=== PATIENT | female | born 1950 | race Caucasian/White ===

== ENCOUNTER 2016-11-29 17:09 | Emergency (ER) | payer MEDICARE ==
--- NOTE | 2016-11-29 19:16 | RAD ---
INDICATION: Pain posterior right knee and calf. COMPARISON: There are no prior studies available for comparison. TECHNIQUE: Multiple real-time, color flow and Doppler tracings of the right lower extremity were obtained. FINDINGS: The common femoral, femoral, profunda femoral and popliteal veins all demonstrate normal compressibility, augmentation with compression and phasic response with respiration. The posterior tibial and peroneal veins demonstrate normal compressibility and augmentation with compression. No popliteal cyst is seen. IMPRESSION: NO EVIDENCE FOR DEEP VENOUS THROMBOSIS.
[2016-11-29 19:56] VITALS: BP 152/79
--- NOTE | 2016-11-29 20:02 | ED ---
Lower Extremity - HPI Summary HPI Summary: Patient presents to ED with 2 days worsening right knee pain which is located posterolateral just superior to the knee and radiates to inferior to the knee joint with no acute injury or known trauma. While for 2 days she has been in pain, she states upon attempting to get out of her car, she was unable to bear weight d/t 10/10 pain. She has been trying to take tylenol for the pain with minimal relief. She is currently using crutches stating she cannot bear weight. Upon movement of the patella, she has not pain. She is able to move about the knee without pain and is only c/o while ambulating. She denies any previous injury to the knee. She denies any recent travel, smoking history or known malignancy. No pain in the hip or the ankle and denies pain in the calf. She is otherwise healthy. PSHx includes bariatric surgery and is not able to take NSAIDS. She denies any allergies. - History of Current Complaint Hx Obtained From: Patient Mechanism Of Injury: Unknown Onset of Pain: Days Onset/Duration: Days Severity Initially: Moderate Severity Currently: Moderate Pain Intensity: 7 Pain Scale Used: 0-10 Numeric Timing: Constant Location: Is Discrete @ - right knee Associated Signs And Symptoms: Positive: Negative Aggravating Factor(s): Standing, Ambulation Alleviating Factor(s): Rest Able to Bear Weight: No - Risk Factors Gout Risk Factors: Age Over 40 DVT Risk Factors: Negative Septic Arthritis Risk Factor: Negative <Jessica Gordon - Last Filed: 11/29/16 19:57> <Delisa Allison - Last Filed: 12/01/16 07:50> - History of Current Complaint Chief Complaint: EDExtremityLower Stated Complaint: RT KNEE PAIN/TOES TINGLING Time Seen by Provider: 11/29/16 18:21 - Allergies/Home Medications Allergies/Adverse Reactions: Allergies Allergy/AdvReac Type Severity Reaction Status Date / Time No Known Allergies Allergy Verified 05/04/16 13:30 PMH/Surg Hx/FS Hx/Imm Hx Previously Healthy: Yes Endocrine/Hematology History: Reports: Hx Diabetes Denies: Hx Anticoagulant Therapy, Hx Systemic Lupus Erythematosus, Hx Thyroid Disease Cardiovascular History: Reports: Hx Hypertension - not currently on meds Denies: Hx Congestive Heart Failure, Hx Pacemaker/ICD, Other Cardiovascular Problems/Disorders - DENIES Respiratory History: Denies: Hx Asthma, Hx Chronic Obstructive Pulmonary Disease (COPD), Other Respiratory Problems/Disorders - DENIES GI History: Denies: Hx Ulcer, Other GI Disorders - DENIES History: Denies: Hx Dialysis, Hx Renal Disease, Other Problems/Disorders - DENIES Musculoskeletal History: Denies: Hx Rheumatoid Arthritis Sensory History: Denies: Hx Hearing Aid Neurological History: Denies: Hx Dementia, Hx Seizures Psychiatric History: Denies: Hx Panic Disorder, Hx Substance Abuse - Cancer History Hx Chemotherapy: No Hx Radiation Therapy: No - Surgical History Surgery Procedure, Year, and Place: gastric bypass SX and Cholecysectomy in 2013 at [place]. - Immunization History Hx Pertussis Vaccination: No Immunizations Up to Date: Unable to Obtain/Confirm Infectious Disease History: No Infectious Disease History: Denies: Hx Clostridium Difficile, Hx Hepatitis, Hx Human Immunodeficiency Virus (HIV), Hx of Known/Suspected MRSA, Hx Shingles, Hx Tuberculosis, Hx Known/ Suspected VRE, Hx Known/Suspected VRSA, History Other Infectious Disease, Traveled Outside the [place] in Last 30 Days - Family History Known Family History: Positive: None Family History: patient denies PMHx - Social History Occupation: Employed Full-time Lives: With Family Alcohol Use: None Hx Substance Use: No Substance Use Type: Reports: None Hx Tobacco Use: No Smoking Status (MU): Never Smoked Tobacco <Jessica Gordon - Last Filed: 11/29/16 19:57> Review of Systems Constitutional: Negative Eyes: Negative Cardiovascular: Negative Respiratory: Negative Positive: no symptoms reported, see HPI Positive: Arthralgia, Myalgia Skin: Negative Neurological: Negative Psychological: Normal All Other Systems Reviewed And Are Negative: Yes <Jessica Gordon - Last Filed: 11/29/16 19:57> Physical Exam Triage Information Reviewed: Yes Vital Signs On Initial Exam: Initial Vitals Temp Pulse Resp BP Pulse Ox 97.1 F 104 20 149/71 97 11/29/16 17:13 11/29/16 17:13 11/29/16 17:13 11/29/16 17:13 11/29/16 17:13 Vital Signs Reviewed: Yes Appearance: Positive: Well-Appearing, Well-Nourished Skin: Positive: Warm, Skin Color Reflects Adequate Perfusion Head/Face: Positive: Normal Head/Face Inspection Eyes: Positive: EOMI, ELENA, Conjunctiva Clear Neck: Positive: Supple, No Lymphadenopathy Respiratory/Lung Sounds: Positive: Clear to Auscultation, Breath Sounds Present Cardiovascular: Positive: Normal, RRR Musculoskeletal: Positive: Pain @ - right knee pain, Other - ROM intact Neurological: Positive: Sensory/Motor Intact, Alert, Oriented to Person Place, Time, Speech Normal Psychiatric: Positive: Normal AVPU Assessment: Alert - [place] Coma Scale Coma Scale Total: 15 <Jessica Gordon - Last Filed: 11/29/16 19:57> Vital Signs On Initial Exam: Initial Vitals Temp Pulse Resp BP Pulse Ox 97.1 F 104 20 149/71 97 11/29/16 17:13 11/29/16 17:13 11/29/16 17:13 11/29/16 17:13 11/29/16 17:13 <Delisa Allison - Last Filed: 12/01/16 07:50> Diagnostics - Vital Signs Vital Signs Temp Pulse Resp BP Pulse Ox 11/29/16 19:53 98.4 F 60 16 152/79 11/29/16 18:36 97 F 92 20 144/76 99 11/29/16 17:13 97.1 F 104 20 149/71 97 <Jessica Gordon - Last Filed: 11/29/16 19:57> - Vital Signs Vital Signs Temp Pulse Resp BP Pulse Ox 11/29/16 19:53 98.4 F 60 16 152/79 11/29/16 18:36 97 F 92 20 144/76 99 11/29/16 17:13 97.1 F 104 20 149/71 97 <Delisa Allison - Last Filed: 12/01/16 07:50> Lower Extremity Course/Dx - Course Course Of Treatment: US to r/o popliteal cyst and DVT. Pain is located lateral over the hamstring radiating to the right knee and inferior to the right knee without calf involvement. The pattern is muscular/nerve and is likely d/t overuse while working on her feet extra hours this week. She works outside in yard [employer]. She has never had this before. She is unable to take ibuprofen for pain. Treatment options explained and provider and patient agree to start conservatively with moist heat, rest, tylenol and low dose muscle relaxers only as needed for any discomfort. Continue with tylenol for pain. Follow up with Dr. Falcon. Will defer at this time for an xray as there is no injury and there is no pain with movement, lachmans, anterior drawer or mcmurrry 's negative. - Diagnoses Differential Diagnosis/HQI/PQRI: Positive: Fracture (Closed), Fracture (Open), Sprain, Strain, Tendonitis <Jessica Gordon - Last Filed: 11/29/16 19:57> <Delisa Allison - Last Filed: 12/01/16 07:50> - Diagnoses Provider Diagnoses: Tendonitis Discharge <Jessica Gordon - Last Filed: 11/29/16 19:57> <Delisa Allison - Last Filed: 12/01/16 07:50> - Discharge Plan Condition: Stable Disposition: HOME Prescriptions: Cyclobenzaprine TAB* [Flexeril TAB*] 10 mg PO BID PRN #12 tab MDD 2 PRN Reason: Pain Patient Education Materials: Musculoskeletal Pain (ED) Forms: *Work Release Referrals: Camila Padilla MD [Primary Care Provider] - Evan Falcon MD [Medical Doctor] - Additional Instructions: Flexeril up to twice daily as needed for muscle pain Moist heat to the area several times per day Rest the area Only bear weight as tolerated. Tylenol 650mg three times daily for any discomfort Attestation Statement User Type: Provider - I was available for consult. This patient was seen by the VAN. The patient was not presented to, seen by, or examined by me. -Dell <Delisa Allison - Last Filed: 12/01/16 07:50>
== END 2016-11-29 19:53 | disposition home or self-care (01) ==
LOC: ED 17:09
DX: M77.9 Enthesopathy, unspecified (principal)
CPT/HCPCS: 99281

== ENCOUNTER 2016-12-26 17:13 | Emergency (ER) | payer MEDICARE ==
--- NOTE | 2016-12-26 19:12 | RAD ---
INDICATION: Pain and decreased range of motion at the RIGHT wrist post fall. COMPARISON: None. TECHNIQUE: AP, lateral, and oblique views RIGHT wrist. REPORT: Bone density appears decreased throughout. No cortical disruption or suspicious trabecular irregularity to suggest fracture. Degenerative cyst at the lunate. Volar soft tissue swelling. IMPRESSION: Negative for fracture or malalignment. Volar soft tissue swelling.
--- NOTE | 2016-12-26 19:14 | RAD ---
Indication: Pain post fall onto the RIGHT patella. Pain on extension. Comparison: December 02, 2016 Technique: RIGHT knee: AP, tunnel, sunrise, crosstable lateral views. Report: Comminuted fracture at the patella with dominant transverse and sagittal components with only minimal displacement primarily cephalocaudal distraction. Probable osteochondral impaction at the articular surface. Moderate complex suprapatellar joint effusion consistent with lipohemarthrosis. No additional fracture evident. Normal articular alignment. Negative for significant joint space narrowing. IMPRESSION: Comminuted only minimally displaced intra-articular fracture at the patella with associated lipohemarthrosis.
[2016-12-26] MEDS ORDERED: Ondansetron ODT TAB* 4 MG PO ONE (19:27)
[2016-12-26] MEDS ORDERED: HYDROcodone/ACETAMIN 5-325 MG* 1 TAB PO ONE ×2 (19:27→21:06)
[2016-12-26] MEDS ORDERED: Ondansetron TAB* 4 MG PO ONE (21:06)
--- NOTE | 2016-12-26 21:11 | ED ---
Adult Trauma - HPI Summary HPI Summary: 66 female presents to ED with complaints of right knee pain and right wrist pain after tripping and sustaining a mechanical fall this morning around 8: 45am. Patient states she was able to bear weight using a person as a crutch however it did cause significant pain. Took one advil this morning for pain however did not help all that much. Unable to move wrist or knee without significant pain. Rest makes pain feel better. Admits to some swelling of both injuries, no bruising or significant deformities. Denies numbness/tingling. No other complaints at this time. Did not hit head. PMHx significant for right knee previous injury, gastric bypass and HTN. - History of Current Complaint Chief Complaint: EDExtremityLower Stated Complaint: FALL RIGHT KNEE PAIN, RIGHT HAND INJURY Time Seen by Provider: 12/26/16 19:21 Hx Obtained From: Patient Mechanism of Injury: Fall Loss of Consciousness: no loss of consciousness Onset/Duration: Started Hours Ago, Traumatic, Still Present, Worse Since Onset of Pain: Immediate, Post Accident Onset Severity: Moderate Current Severity: Moderate Pain Intensity: 9 Pain Scale Used: 0-10 Numeric Location: Extremities - right knee, right wrist Character: Aching, Sharp Aggravating Factor(s): Movement Alleviating Factor(s): Rest Associated Signs & Symptoms: Negative: Nausea/Vomiting, Loss of Consciousness Related History: Other: - right hand dominant - Allergy/Home Medications Allergies/Adverse Reactions: Allergies Allergy/AdvReac Type Severity Reaction Status Date / Time No Known Allergies Allergy Verified 05/04/16 13:30 PMH/Surg Hx/FS Hx/Imm Hx Endocrine/Hematology History: Reports: Hx Diabetes Denies: Hx Anticoagulant Therapy, Hx Systemic Lupus Erythematosus, Hx Thyroid Disease Cardiovascular History: Reports: Hx Hypertension - not currently on meds Denies: Hx Congestive Heart Failure, Hx Pacemaker/ICD, Other Cardiovascular Problems/Disorders - DENIES Respiratory History: Denies: Hx Asthma, Hx Chronic Obstructive Pulmonary Disease (COPD), Other Respiratory Problems/Disorders - DENIES GI History: Denies: Hx Ulcer, Other GI Disorders - DENIES History: Denies: Hx Dialysis, Hx Renal Disease, Other Problems/Disorders - DENIES Musculoskeletal History: Denies: Hx Rheumatoid Arthritis Sensory History: Denies: Hx Hearing Aid Neurological History: Denies: Hx Dementia, Hx Seizures Psychiatric History: Denies: Hx Panic Disorder, Hx Substance Abuse - Cancer History Hx Chemotherapy: No Hx Radiation Therapy: No - Surgical History Surgery Procedure, Year, and Place: gastric bypass SX and Cholecysectomy in 2013 at [place]. - Immunization History Immunizations Up to Date: Yes Infectious Disease History: No Infectious Disease History: Denies: Hx Clostridium Difficile, Hx Hepatitis, Hx Human Immunodeficiency Virus (HIV), Hx of Known/Suspected MRSA, Hx Shingles, Hx Tuberculosis, Hx Known/ Suspected VRE, Hx Known/Suspected VRSA, History Other Infectious Disease, Traveled Outside the [place] in Last 30 Days - Family History Known Family History: Positive: None Family History: patient denies PMHx - Social History Alcohol Use: None Hx Substance Use: No Substance Use Type: Reports: None Hx Tobacco Use: No Smoking Status (MU): Never Smoked Tobacco Review of Systems Constitutional: Negative Cardiovascular: Negative Respiratory: Negative Positive: Arthralgia, Myalgia, Decreased ROM, Edema - right wrist and right knee Skin: Negative Neurological: Negative All Other Systems Reviewed And Are Negative: Yes Physical Exam Triage Information Reviewed: Yes Vital Signs On Initial Exam: Initial Vitals Temp Pulse Resp BP Pulse Ox 98.0 F 82 18 166/79 99 12/26/16 17:24 12/26/16 17:24 12/26/16 17:24 12/26/16 17:24 12/26/16 17:24 BP improved, in pain 154/80 Vital Signs Reviewed: Yes Appearance: Positive: Well-Appearing, Well-Nourished, Pain Distress - mild to moderate with movement Skin: Positive: Warm, Skin Color Reflects Adequate Perfusion, Dry, Other - no significant ecchymosis or signs of trauma noted. no obvious deformity or abrasions noted. Negative: Cold, Numb, Cyanosis @, Pale, Erythema @ Head/Face: Positive: Normal Head/Face Inspection Eyes: Positive: Conjunctiva Clear ENT: Positive: Hearing grossly normal, Pharynx normal Neck: Positive: Supple, Nontender Respiratory/Lung Sounds: Positive: Clear to Auscultation, Breath Sounds Present. Negative: Rales, Rhonchi, Wheezes Cardiovascular: Positive: Normal, RRR, Pulses are Symmetrical in both Upper and Lower Extremities - 2+ radial and pedal b/l. Negative: Murmur, Rub Musculoskeletal: Positive: Limited @ - right wrist and right knee with any ROM including passive., Pain @ - diffuse right wrist and right anterior knee over patella area, Edema Right - minimal at right wrist and right anterior knee, Other - rest of MSK exam normal. No appreciated crepitus, step off or obvious deformity. no ecchymosis. no pain in lower LE tibia/fibula and no pain on palpation of right forearm, elbow.. Negative: Interruption @ Neurological: Positive: Normal, Sensory/Motor Intact - sensation intact CMS normal, Alert, Oriented to Person Place, Time, Reflexes Intact - not assessed at right patella, NV Bundle Intact Distally, Unable to Assess Gait - due to pain /injury Psychiatric: Positive: Affect/Mood Appropriate - [place] Coma Scale Best Eye Response: 4 - Spontaneous Best Motor Response: 6 - Obeys Commands Best Verbal Response: 5 - Oriented Diagnostics - Vital Signs Vital Signs Temp Pulse Resp BP Pulse Ox 12/26/16 18:47 99 F 65 16 154/80 99 12/26/16 17:24 98.0 F 82 18 166/79 99 - Laboratory Lab Statement: Any lab studies that have been ordered have been reviewed, and results considered in the medical decision making process. - Radiology knee R Xray Interpretation: Positive (See Comments) - Comminuted only minimally displaced intra-articular fracture at the patella with associated lipohemarthrosis. Radiology Interpretation Completed By: Radiologist wrist Xray Interpretation: No Acute Changes - Negative for fracture or malalignment. Volar soft tissue swelling. Radiology Interpretation Completed By: Radiologist Adult Trauma Course/Dx - Course Course Of Treatment: given pain management and anti nausea medicaton due to the pain medication causing nausea in the past. prophylactic. x-rays obtained and negative for fracture of wrist however positive for fracture of right patella. given thumb spica splint for wrist sprain, knee immobilizer for right patella fracture. crutches, ice. continue pain management at home, RICE and NSAIDs. Spoke with Dr Medrano at 7:30pm who stated immobilzer, and follow up for right knee as it appears to need surgery. Follow up with Ortho Tuesday. Aware of worsening signs and symptoms and return if occur. Follow up PCP as well. - Diagnoses Differential Diagnosis/HQI/PQRI: Positive: Contusion(s), Fracture, Dislocation, Sprain, Strain Provider Diagnoses: Right wrist sprain, Right patella fracture - Physician Notifications Discussed Care Of Patient With: Dr Medrano Time Discussed With Above Provider: 19:30 Instructed by Provider To: Have Pt Call For Appt. Discharge - Discharge Plan Condition: Stable Disposition: HOME Prescriptions: HYDROcodone/ACETAMIN 5-325 MG* [[place] 5-325 TAB*] 1 tab PO Q4H PRN #20 tab MDD 4 PRN Reason: Pain Ondansetron ODT TAB* [Zofran 4 MG Odt TAB*] 4 mg PO Q6H PRN #20 tab.odt PRN Reason: Nausea Patient Education Materials: Wrist Sprain (ED), Patellar Fracture (ED) Referrals: Camila Padilla MD [Primary Care Provider] - Cliff Medrano MD [Medical Doctor] - Additional Instructions: Take prescribed medication as directed for pain and nausea, as needed. Rest, ice and elevate both wrist and knee. Wear braces on both. Do not bear weight on right leg. Use crutches as able. Call and make an appointment with Ortho for further evaluation and treatment. If new symptoms develop or symptoms worsen please seek medical attention promptly.
[2016-12-26 22:06] VITALS: BP 144/81
== END 2016-12-26 22:06 | disposition home or self-care (01) ==
LOC: ED 17:13
DX: S82.001A Unspecified fracture of right patella, initial encounter for closed fracture (principal); S63.501A Unspecified sprain of right wrist, initial encounter; W18.09XA Striking against other object with subsequent fall, initial encounter; Y92.9 Unspecified place or not applicable; I10 Essential (primary) hypertension; E11.9 Type 2 diabetes mellitus without complications
CPT/HCPCS: 99282; A9270-GY

== ENCOUNTER 2020-12-06 21:18 | Observation (INO) ==
[2020-12-06 21:44] LABS: ABS Basophils 0.1 10^3/ul (0-0.2); ABS Eosinophils 0.3 10^3/ul (0-0.6); ABS Lymphocytes 2.4 10^3/ul (1.0-4.8); ABS Monocytes 0.7 10^3/ul (0-0.8); ABS Neutrophils 3.9 10^3/ul (1.5-7.7); Eosinophil % 3.6 %; Hematocrit 41 % (35-47); Lymphocyte % 33.1 %; Mean Corpuscular HGB Conc 34 g/dL (31-36); Mean Corpuscular Hemoglobin 33 pg (27-31); Mean Corpuscular Volume 96 fL (80-97); Mean Platelet Volume 8.6 fL (7.4-10.4); Platelet Count 239 10^3/uL (150-450); Red Blood Count 4.27 10^6 /uL (3.70-4.87); Red Cell Distribution Width 13 % (10-15); White Blood Count 7.3 10^3/uL (3.5-10.8)
[2020-12-06 21:50] LABS: INR 0.96 (0.86-1.15)
[2020-12-06 22:01] LABS: Albumin 4.2 g/dL (3.2-5.2); Albumin/Globulin Ratio 1.6 (1-3); Calcium 9.1 mg/dL (8.6-10.3); EGFR African American 98.8 (>60); EGFR Non-African American 81.6 (>60); Globulin 2.7 g/dL (2-4); Potassium 3.7 mmol/L (3.5-5.0); Total Bilirubin 0.4 mg/dL (0.2-1.0); Total Protein 6.9 g/dL (6.4-8.9)
[2020-12-07] MEDS ORDERED: Nitro 2% OINT (Nitroglycerin) 1 INCH/PAK TOPICAL ONE (02:12)
[2020-12-07] MEDS ORDERED: Ondansetron 4 mg VIAL 2 MG/ML 2 ml VIAL IV PRN (04:33)
[2020-12-07 05:02] LABS: HDL Cholesterol 59.6 mg/dL
[2020-12-07] MEDS: Multivitamins/Minerals TAB PO SCH (08:51)
[2020-12-07] MEDS: Cholecalciferol (VIT D3) 1,000 unit TAB PO SCH (08:51)
[2020-12-07] MEDS: Calcium Citrate 200 mg TAB PO SCH ×3 (08:52→20:32)
[2020-12-07] MEDS: ASCORBIC ACID PO SCH ×2 (08:53→20:33)
[2020-12-07] MEDS: COENZYME Q10 400 MG PO SCH (08:53)
[2020-12-07] MEDS: FOLIC ACID PO SCH ×2 (08:53→20:33)
[2020-12-07] MEDS: INTRINSIC FACTOR PO SCH ×2 (08:53→20:33)
[2020-12-07] MEDS: [UNRECOGNIZED DRUG - OTHER] PO SCH ×2 (08:53→20:33)
[2020-12-07] MEDS: CYANOCOBALAMIN PO SCH ×2 (08:53→20:33)
[2020-12-07] MEDS: Enoxaparin 40 MG/0.4 ML SYR SUBCUT SCH (08:59)
[2020-12-07] MEDS ORDERED: Nitro Patch/OINT Remove PATCH PATCH OFF ONE (18:00)
[2020-12-08] MEDS: Enoxaparin 40 MG/0.4 ML SYR SUBCUT SCH (08:26)
[2020-12-08] MEDS: Multivitamins/Minerals TAB PO SCH (08:28)
[2020-12-08] MEDS: Calcium Citrate 200 mg TAB PO SCH ×2 (08:28→14:16)
[2020-12-08] MEDS: Cholecalciferol (VIT D3) 1,000 unit TAB PO SCH (08:29)
[2020-12-08] MEDS: FOLIC ACID PO SCH (08:36)
[2020-12-08] MEDS: CYANOCOBALAMIN PO SCH (08:36)
[2020-12-08] MEDS: ASCORBIC ACID PO SCH (08:36)
[2020-12-08] MEDS: COENZYME Q10 400 MG PO SCH (08:36)
[2020-12-08] MEDS: INTRINSIC FACTOR PO SCH (08:36)
[2020-12-08] MEDS: [UNRECOGNIZED DRUG - OTHER] PO SCH (08:36)
[2020-12-08] MEDS ORDERED: Regadenoson 0.4 MG/5 ML SYRINGE ONE (08:50)
[2020-12-08 11:48] LABS: ABS Basophils 0.1 10^3/ul (0-0.2); ABS Eosinophils 0.3 10^3/ul (0-0.6); ABS Monocytes 0.6 10^3/ul (0-0.8); ABS Neutrophils 4.7 10^3/ul (1.5-7.7); Eosinophil % 3.5 %; Hematocrit 44 % (35-47); Hemoglobin 15.1 g/dL (12.0-16.0); Lymphocyte % 26.4 %; Mean Corpuscular HGB Conc 34 g/dL (31-36); Mean Corpuscular Hemoglobin 33 pg (27-31); Mean Corpuscular Volume 96 fL (80-97); Mean Platelet Volume 8.8 fL (7.4-10.4); Platelet Count 258 10^3/uL (150-450); Red Blood Count 4.56 10^6 /uL (3.70-4.87); Red Cell Distribution Width 13 % (10-15); White Blood Count 7.7 10^3/uL (3.5-10.8)
[2020-12-08 11:57] LABS: Calcium 9.6 mg/dL (8.6-10.3); EGFR African American 113.4 (>60); EGFR Non-African American 93.7 (>60); Potassium 4.1 mmol/L (3.5-5.0)
[2020-12-08 16:18] VITALS: BP 137/73
== END 2020-12-08 18:00 | disposition home or self-care (01) ==
LOC: MEDTELE 21:18 → ED 21:18 → SUATTDRO 12-07 06:14 → MEDTELE 12-07 06:39
PROVIDERS: ADMIT Hospitalist; ATTEND Internal Medicine

== ENCOUNTER 2024-01-29 12:05 | Inpatient (IN) ==
[2024-01-29] MEDS: Ondansetron 4 mg VIAL 2 MG/ML 2 ml VIAL IV ONE (13:02)
[2024-01-29] MEDS: Lactated Ringers 1000 ml BAG 1,000 ML IV ONE ×2 (13:02→16:38)
[2024-01-29 13:09] LABS: Hematocrit 41.5 % (35-45); Hemoglobin 14.1 g/dL (11.5-14.3); Mean Corpuscular Hemoglobin 32.3 pg (27-33); Mean Corpuscular Volume 94.9 fL (80-97); Red Blood Count 4.37 10^6/uL (3.63-4.92); Red Cell Distribution Width 13.2 % (12-17); White Blood Count 3.4 10^3/uL (3.8-11.8)
[2024-01-29 13:13] LABS: INR 1.03 (0.85-1.14)
[2024-01-29 13:28] LABS: ABS Lymphocytes 0.2 10^3/uL (1.0-4.8); ABS Monocytes 0.3 10^3/uL (0.0-0.9); Eosinophil % 0.1 %; Lymphocyte % 4.4 %; Mean Platelet Volume 8.7 fL (7.5-11.2); Nucleated Red Blood Cells % 0.1 %/100WBC (0.0-0.8); Platelet Count 99 10^3/uL (150-450)
[2024-01-29 13:55] LABS: Albumin 4.1 g/dL (3.2-5.2); Albumin/Globulin Ratio 1.9 (1-3); Creatinine, Serum 0.62 mg/dL (0.51-0.95); Globulin 2.2 g/dL (2-4); Potassium 4.2 mmol/L (3.5-5.0); Total Bilirubin 0.7 mg/dL (0.2-1.0); Total Protein 6.3 g/dL (6.4-8.9)
[2024-01-29 14:45] LABS: High Sensitivity Troponin 1 Hr 9 pg/mL (<15)
[2024-01-29] MEDS: Iodixanol 320 (CONTRAST) 100 ML SDV IV ONE (15:13)
[2024-01-29 16:10] LABS: Magnesium 1.7 mg/dL (1.9-2.7)
[2024-01-29 16:39] LABS: Urine Appearance Turbid; Urine Bacteria Absent /HPF (Absent); Urine Bilirubin Negative (Negative); Urine Blood Trace (Negative); Urine Color Yellow; Urine Glucose Negative (Negative); Urine Ketones 1+ (Negative); Urine Nitrite Negative (Negative); Urine Protein 2+ (>=100 mg/dL) (Negative); Urine Red Blood Cell 1+(3-5/hpf) /HPF (0-Trace); Urine Specific Gravity >1.050 (1.002-1.030); Urine Squamous Epithelial Cell Present /HPF (Absent); Urine Urobilinogen 2+ (Negative); Urine White Blood Cell Trace(0-5/hpf) /HPF (0-Trace)
[2024-01-29] MEDS: Cefepime 2 GM in Dextrose 2 GM/50 ML BAG IV ONE (18:55)
[2024-01-29] MEDS: Vancomycin 1,250 MG in NS 0.9% 250 ml 250 ML IVPB ONE (19:52)
[2024-01-29] MEDS ORDERED: Dextrose 50% Syringe 50 ml 25 GM/50 ML SYRINGE IV PUSH PRN (20:03)
[2024-01-29] MEDS: Enoxaparin 40 MG/0.4 ML SYR SUBCUT SCH (20:49)
[2024-01-29] MEDS ORDERED: Ondansetron 4 mg VIAL 2 MG/ML 2 ml VIAL IV PRN (21:14)
[2024-01-29 22:07] LABS: Osmolality Serum 276 mOsm/kg (275-295)
[2024-01-29] MEDS ORDERED: Sulfur Hexaflouride MICROSPHR 25 MG VIAL IV PRN (22:19)
[2024-01-29] MEDS: DOXYcycline 100 MG in NS 0.9% 250 ml 250 ML IVPB SCH (22:38)
[2024-01-30 00:15] LABS: Urine Osmo 475 mOsm/kg (150-1150)
[2024-01-30 06:46] LABS: ABS Lymphocytes 0.2 10^3/uL (1.0-4.8); ABS Monocytes 0.2 10^3/uL (0.0-0.9); ABS Neutrophils 1.4 10^3/uL (1.5-7.6); ABS Nucleated RBC 0.01 10^3/ul; Eosinophil % 0.3 %; Hematocrit 37.5 % (35-45); Hemoglobin 12.7 g/dL (11.5-14.3); Lymphocyte % 9.9 %; Mean Corpuscular Hemoglobin 32.1 pg (27-33); Mean Corpuscular Hgb Conc 33.8 g/dL (31-36); Mean Corpuscular Volume 94.8 fL (80-97); Mean Platelet Volume 9.9 fL (7.5-11.2); Nucleated Red Blood Cells % 0.3 %/100WBC (0.0-0.8); Platelet Count 72 10^3/uL (150-450); Red Blood Count 3.96 10^6/uL (3.63-4.92); Red Cell Distribution Width 13.2 % (12-17); White Blood Count 1.8 10^3/uL (3.8-11.8)
[2024-01-30 07:06] LABS: Anion Gap 6 mmol/L (2-16); Blood Urea Nitrogen 13 mg/dL (6-24); CO2 Carbon Dioxide 25 mmol/L (22-32); Calcium 7.6 mg/dL (8.6-10.3); Chloride 101 mmol/L (101-111); Creatinine, Serum 0.45 mg/dL (0.51-0.95); Glucose 107 mg/dL (70-100); Sodium 132 mmol/L (135-145); eGFR CKD-EPI 101.5 (>60)
[2024-01-30] MEDS: Calcium Citrate 200 mg TAB PO SCH (08:35)
[2024-01-30] MEDS: Cholecalciferol (VIT D3) 1,000 unit TAB PO SCH (08:36)
[2024-01-30 08:51] LABS: Magnesium 1.7 mg/dL (1.9-2.7)
[2024-01-30] MEDS: DOXYcycline 100 MG in NS 0.9% 250 ml 250 ML IVPB SCH (23:06)
[2024-01-31 06:25] LABS: Calcium 8.1 mg/dL (8.6-10.3); Creatinine, Serum 0.66 mg/dL (0.51-0.95); Magnesium 1.7 mg/dL (1.9-2.7); Potassium 3.5 mmol/L (3.5-5.0); eGFR CKD-EPI 92.6 (>60)
[2024-01-31 07:20] LABS: Hematocrit 34.6 % (35-45); Mean Corpuscular Hemoglobin 32.6 pg (27-33); Mean Corpuscular Hgb Conc 34.6 g/dL (31-36); Mean Corpuscular Volume 94.1 fL (80-97); Mean Platelet Volume 9.7 fL (7.5-11.2); Platelet Count 58 10^3/uL (150-450); Red Blood Count 3.68 10^6/uL (3.63-4.92); Red Cell Distribution Width 13.2 % (12-17)
[2024-01-31 07:21] LABS: ABS Lymphocytes 0.7 10^3/uL (1.0-4.8); ABS Monocytes 0.5 10^3/uL (0.0-0.9); ABS Neutrophils 0.7 10^3/uL (1.5-7.6); ABS Nucleated RBC 0.01 10^3/ul; Anisocytosis 1+; Eosinophil % 1.6 %; Lymphocyte % 37.1 %; Nucleated Red Blood Cells % 0.3 %/100WBC (0.0-0.8)
[2024-01-31 07:48] LABS: Albumin 3.2 g/dL (3.2-5.2); Albumin/Globulin Ratio 1.9 (1-3); Direct Bilirubin 0.1 mg/dL (0.03-0.18); Globulin 1.7 g/dL (2-4); Indirect Bilirubin 0.4 mg/dL (0.3-1.0); Total Bilirubin 0.5 mg/dL (0.2-1.0); Total Protein 4.9 g/dL (6.4-8.9)
[2024-01-31] MEDS: Magnesium Sulfate 2 gm BAG 2 GM/50 ML BAG IVPB ONE (08:07)
[2024-01-31] MEDS: Magnesium Sulfate IV 1GM/100ML 1 GM/100 ML BAG IV ONE (09:44)
[2024-02-01 07:12] LABS: ABS Eosinophils 0.1 10^3/uL (0.0-0.5); ABS Lymphocytes 1.7 10^3/uL (1.0-4.8); ABS Monocytes 0.6 10^3/uL (0.0-0.9); ABS Neutrophils 1.3 10^3/uL (1.5-7.6); Eosinophil % 1.6 %; Hemoglobin 11.7 g/dL (11.5-14.3); Lymphocyte % 46.6 %; Mean Corpuscular Hemoglobin 32.6 pg (27-33); Mean Corpuscular Hgb Conc 34.5 g/dL (31-36); Mean Corpuscular Volume 94.4 fL (80-97); Mean Platelet Volume 9.4 fL (7.5-11.2); Nucleated Red Blood Cells % 0.1 %/100WBC (0.0-0.8); Platelet Count 83 10^3/uL (150-450); Red Cell Distribution Width 13.4 % (12-17); White Blood Count 3.7 10^3/uL (3.8-11.8)
[2024-02-01 07:17] LABS: Calcium 8.3 mg/dL (8.6-10.3); Creatinine, Serum 0.48 mg/dL (0.51-0.95); Magnesium 1.6 mg/dL (1.9-2.7); Potassium 3.3 mmol/L (3.5-5.0)
[2024-02-01] MEDS: Magnesium Sulf 4 GM/100 ML IV 4,000 MG/100 ML BAG IVPB ONE (09:11)
[2024-02-01] MEDS: Potassium Chlor 20 meq TAB.ER PO ONE (09:12)
[2024-02-01 10:40] VITALS: BP 106/61
[2024-02-01] MEDS: Potassium Chlor 10 meq TAB PO ONE (10:48)
[2024-02-01 19:05] LABS: Anaplasma phagocytophilum Positive (Negative); B. miyamotoi PCR, B Negative (Negative); Babesia divergens/MO-1 Negative (Negative); Babesia ducani Negative (Negative); Ehrlichia chaffeensis Negative (Negative); Ehrlichia ewingii/canis Negative (Negative); Ehrlichia muris eauclairensis Negative (Negative)
== END 2024-02-01 14:30 | disposition home or self-care (01) | DRG 872 ==
LOC: ED 12:05 → EDHOLD 12:05 → SUATTDRO 20:01 → MED 01-30 09:34
PROVIDERS: ADMIT Internal Medicine; ATTEND Internal Medicine